=== PATIENT | female | born 1970 | race Hispanic/Latino ===

== ENCOUNTER 2024-01-15 10:02 | Emergency (ER) | payer BC ==
--- OUTSIDE RECORDS SUMMARY | 2024-01-15 10:07 | XMS REPORT | Continuity of Care Document ---
Author Name Unknown Address [address] [facility] [address] [place] [address] [facility] Address [address] [facility]. 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 Role Phone Mustapha Davis M.D.mberly Primary Care Physician Bree Rhodes Attending Clinician Unavailable KUSH WONG Attending Clinician Unavailabl e Fam HERNÁNDEZP, Kush Attending Clinician [phone] Unknown, Attending Attending Clinician Unavailab GC_GCBZW_Kadiyala_S Attending Clinician Unavaila ble Doctor Unassigned, [place] Attending Clinician U enedinaailCAROLIN Wong Attending Clinician Unavailable Carolin Ordonez Attending Clinician [phone] Serena Conner Attending Clinician + [phone] Elham Bahena Attending Clinician + [phone] SERENA WATERS Attending Clinician Unavail able Radiology Attending Clinician Unavailable RADIOLOGY Attending Clinician Unavailable Silvano Sterling Attending Clinician Unavailabl e [email or web address]_S Admitting Clinician Graham colunga Physician, No Primary or Family Admitting Clinic shereen Unavailable Payers Payer Name Policy Type Policy Number Effective Date Expirati on Date Source [facility] - OUT OF STATE [id number] 2016 00:00:00 [employer] and [employer] C1 [id number] 2017 00:00:00 [facility] Problems Condition Name Condition Details Condition Category Status Onset Date Resolution Date Last Treatment Date Treating Clinician Comments Source [id number] Pure hyperchole sterolemia Problem Active [facility] [id number] Essential hypertensi on Problem Active [facility] [id number] Fatty liver Problem Active [facility] Allergic rhinitis Allergic rhinitis Problem Active [facility] FH: Diabetes mellitus Family history of diabetes mellitus Problem Active [facility] Overweight Overweight (BMI 25.0-29.9) Problem Active [facility] No known active problems No known active problems Disease [facility] [id number] Right groin pain Problem Active [facility] Liver function tests abnormal Abnormal LFTs Problem Active [facility] [id number] Vitamin D deficiency Problem Active [facility] [id number] Prediabete s Problem Active [facility] [id number] Leg cramps Problem Active Co mmon [facility] [id number] Alkaline phosphatas e raised Problem Active [facility] [id number] Mass of inguinal region Problem Active [facility] [id number] Hematuria, unspecifie d type Problem Active [facility] Allergies, Adverse Reactions, Alerts Allergy Name Allergy Type Status Severity Reaction(s) Onset Date Inactive Date Treating Clinician Comments Source NO KNOWN ALLERGIE S Drug Class Active [facility] Social History Social Habit Start Date Stop Date Quantity Comments Source Sexual orientation U [facility] Sex Assigned At [facility] Exposure to SARS-CoV-2 (event) Not sure [facility] History of Tobacco Use [facility] History of Social function 2023-08-10 00:00:00 2023-08-10 00:00:00 [facility] Tobacco use and exposure 2023-08-10 00:00:00 2023-08-10 00:00:00 Smokeless tobacco non-user [facility] Alcohol intake 2023-08-10 00:00:00 2023-08-10 00:00:00 Current non-drinker of alcohol (finding) [facility] Smoking Status Start Date Stop Date Source Never smoked tobacco [facility] Never Smoker [facility] Medications Ordered Medication Name Filled Medication Name Start Date Stop Date Current Medication? Ordering Clinician Indication Dosage Frequency Signature (SIG) Comments Components Source lisinopril 20 mg tablet 10-09 00:00: 00 Yes 1mg Rolan Elizabeth rosuvastati n 10 mg tablet 10-09 00:00: 00 Yes 1mg Rolan Elizabeth promethazin e-dextromet horphan 6.25-15 mg/5 mL syrup 08-10 00:00: 00 Yes [id number] 5mL Take 5 mL by mouth 4 (four) times daily as needed for Cough. [facility] methylPREDN ISolone (MEDROL, JAVIER,) 4 mg tablets 08-10 00:00: 00 Yes [id number] Take by mouth SEE-INSTRU CTIONS. follow package directions [facility] lisinopril 20 mg tablet 2022-08 205 00:00: 00 Yes mg Rolan Elizabeth rosuvastati n 10 mg tablet 2022-08 0-31 00:00: 00 Yes mg Rolan Elizabeth ROSUVASTATI N CALCIUM 10 MG TABS 01-06 00:00: 00 Yes Rolan Elizabeth LISINOPRIL 20 MG TABS 01-06 00:00: 00 Yes Rolan Elizabeth NITROFURANT OIN MONOHYDRATE 100 MG CAPS 2021-08- 00:00: 00 Yes Rolan Elizabeth TAKE 1 TABLET DAILY. 2021-08 00:00: 00 12-17 00:00 :00 No 20 Rolan Elizabeth TAKE 1 TABLET AT BEDTIME. 2021-08 00:00: 00 12-17 00:00 :00 No 10 Rolan Elizabeth ciprofloxac in 500 mg tablet 12-23 00:00: 00 Yes 1mg Rolan Elizabeth lisinopril 20 mg tablet 11-18 00:00: 00 Yes 1mg Rolan Elizabeth Dose Unknown 11-18 00:00: 00 Yes Rolan Elizabeth Dose Unknown 11-18 00:00: 00 Yes Rolan Elizabeth Dose Unknown 11-18 00:00: 00 Yes Rolan Elizabeth Dose Unknown 11-18 00:00: 00 Yes Rolan Elizabeth Dose Unknown 11-18 00:00: 00 Yes Rolan Elizabeth rosuvastati n 10 mg tablet 09-28 00:00: 00 Yes 1mg Rolan Elizabeth lisinopril 20 mg tablet 09-28 00:00: 00 Yes 1mg Rolan Elizabeth prednisone 20 mg tablet 09-01 00:00: 00 Yes 1mg Rolan Elizabeth azithromyci n 250 mg tablet 09-01 00:00: 00 Yes mg Rolan Elizabeth Bromfed DM 2 mg-30 mg-10 mg/5 mL oral syrup 09-01 00:00: 00 Yes 10mg/5 mL Rolan Elizabeth Protonix 40 mg tablet,светлана yed release 2020-08 00:00: 00 Yes 1mg Rolan Elizabeth Zofran 4 mg tablet 2020-08 00:00: 00 Yes 1mg Rolan Elizabeth Nitrofurant oin&Nit. Macrocryst 100 mg capsule 2020-08 00:00: 00 08-06 05:59 :00 No [id number] 100mg Take 1 capsule by mouth 2 (two) times daily for 7 days. [facility] LISINOPRIL ORAL 01-16 00:35: 37 Yes 20mg Take 20 mg by mouth daily. [facility] atorvastati n 10 mg tablet 01-16 00:35: 37 Yes 10mg Take 10 mg by mouth at bedtime. [facility] LISINOPRIL ORAL 01-15 19:35: 37 Yes 20mg Take 20 mg by mouth daily. [facility] atorvastati n 10 mg tablet 01-15 19:35: 37 Yes 10mg Take 10 mg by mouth at bedtime. [facility] rosuvastati n 10 mg tablet 12-17 00:00: 00 Yes 10mg Take 10 mg by mouth at bedtime. [facility] Ergocalcife rol [id number] UNIT Ergocalcife rol 60031 UNIT 2019-08 00:00: 00 09-17 00:00 :00 No 1{capsu le} Ergocalcif kain 10142 UNIT PredniSONE PredniSONE 03-17 00:00: 00 03-27 00:00 :00 No Na Rhodes 2 tablets dailyx 5 days then 1 tablet daily x 5 days [facility] Azithromyci n Azithromyci n 03-17 00:00: 00 03-22 00:00 :00 No Na Rhodes 2 tablets on the first day, then 1 tablet daily for 4 days [facility] LISINOPRIL ORAL 11-07 23:33: 50 Yes 20mg Take 20 mg by mouth daily. [facility] atorvastati n 10 mg tablet 11-07 23:33: 50 Yes 10mg Take 10 mg by mouth at bedtime. [facility] promethazin e-dextromet horphan 6.25-15 mg/5 mL syrup 11-07 00:00: 00 Yes [id number] 5mL Take 5 mL by mouth 4 (four) times daily as needed for Cough or Cold symptoms. [facility] guaiFENesin 600 mg tablet 11-07 00:00: 00 Yes [id number] 600mg Take 1 tablet by mouth every 12 (twelve) hours. [facility] Cipro Cipro 04-19 00:00: 00 Yes Na Rhodes 1 tablet [facility] Cipro 500 MG Cipro 500 MG 913 00:00: 00 No 1{table t} BID Cipro 500 MG Crestor Crestor 16 00:00: 00 Yes Na Rhodes 1 tablet [facility] naproxen sodium 550 mg tablet 12-26 00:00: 00 Yes 550mg Take 1 tablet by mouth 2 (two) times daily with meals. [facility] Levocetiriz ine Dihydrochlo ride Levocetiriz ine Dihydrochlo ride Yes Na Rhodes 1 tablet in the evening [facility] Flonase Flonase Yes Na Rhodes 1 spray in each nostril [facility] Lipitor Lipitor Yes Na Rhodes 1 TAB(S) ONCE A DAY (AT BEDTIME) ORALLY [facility] Lisinopril Lisinopril Yes Na Rhodes TA KE ONE DAILY [facility] Singulair Singulair Yes Na Rhodes 1 ta blet in the evening [facility] Lisinopril Lisinopril Yes Na Rhodes 1 tablet [facility] Singulair 10 MG Singulair 10 MG No 1{table t_in_ e_eveni ng} QD Singulair 10 MG Flonase 50 MCG/ACT Flonase 50 MCG/ACT No 1{spray _in_eac h_nostr il} QD Flonase 50 MCG/ACT Crestor 5 MG Crestor 5 MG No 1{table t} QD Crestor 5 MG Lisinopril 20 MG Lisinopril 20 MG No 1{table t} QD Lisinopril 20 MG Levocetiriz ine Dihydrochlo ride 5 MG Levocetiriz ine Dihydrochlo ride 5 MG No 1{table t_in_ e_eveni ng} QD Levocetiri zine Dihydrochl oride 5 MG Lipitor 10 MG Lipitor 10 MG No Lipitor 10 MG Crestor 10 MG Crestor 10 MG No 1{table t} Crestor 10 MG Rosuvastati n Calcium 5 MG Rosuvastati n Calcium 5 MG No Rosuvastat in Calcium 5 MG Immunizations Ordered Immunization Name Filled Immunization Name Date Status Comments Source influenza, seasonal vaccine, quadrivalent, adjuvanted, .5mL dose, preservative-free influenza, seasonal vaccine, quadrivalent, adjuvanted, .5mL dose, preservative-free 2022-06-17 00:00:00 Completed Rolan Elizabeth Afluria single dose Afluria single dose 09:35:00 Completed [facility] Afluria single dose Afluria single dose 09:35:00 Completed [facility] Afluria single dose Afluria single dose 09:35:00 Completed [facility] Afluria single dose Afluria single dose 09:35:00 Completed [facility] Afluria single dose Afluria single dose 09:35:[address] [facility] [place] [place] Vital Signs Vital Name Observation Time Observation Value Comments Willy babcock Systolic blood pressure 2023-08-10 16:09:00 128 mm[Hg] [facility] Diastolic blood pressure 2023-08-10 16:09:00 81 mm[Hg] [facility] Heart rate 2023-08-10 16:08:00 70 /min [facility] Body temperature 2023-08-10 16:08:00 37.06 Lexy [facility] Respiratory rate 2023-08-10 16:08:00 17 /min [facility] Body height 2023-08-10 16:08:00 154.9 cm [facility] Body weight 2023-08-10 16:08:00 71.668 kg [facility] BMI 2023-08-10 16:08:00 29.85 kg/m2 [facility] Oxygen saturation in Arterial blood by Pulse oximetry 2023-08-10 16:08:00 98 /min [facility] Systolic blood pressure 2021-07-29 23:40:00 114 mm[Hg] [facility] Diastolic blood pressure 2021-07-29 23:40:00 67 mm[Hg] [facility] Heart rate 2021-07-29 23:40:00 85 /min [facility] Body temperature 2021-07-29 23:40:00 36.94 Lexy [facility] Respiratory rate 2021-07-29 23:40:00 17 /min [facility] Body weight 2021-07-29 23:40:00 69.599 kg Univ [facility] BMI 2021-07-29 23:40:00 28.99 kg/m2 [facility] Oxygen saturation in Arterial blood by Pulse oximetry 2021-07-29 23:40:00 97 /min [facility] Systolic blood pressure 2021-01-16 00:35:00 130 mm[Hg] [facility] Diastolic blood pressure 2021-01-16 00:35:00 87 mm[Hg] [facility] Heart rate 2021-01-16 00:35:00 97 /min Unive [facility] Body temperature 2021-01-16 00:35:00 37.39 Lexy [facility] Respiratory rate 2021-01-16 00:35:00 16 /min [facility] Body height 2021-01-16 00:35:00 154.9 cm [facility] Body weight 2021-01-16 00:35:00 70.761 kg [facility] BMI 2021-01-16 00:35:00 29.48 kg/m2 [facility] Oxygen saturation in Arterial blood by Pulse oximetry 2021-01-16 00:35:00 100 /min [facility] bmi 2020-12-17 08:00:00 29.47 kg/m2 [facility] oximetry 2020-12-17 08:00:00 97 % Commo n [facility] respiratory rate 2020-12-17 08:00:00 16 /min [facility] blood pressure systolic 2020-12-17 08:00:00 132 mm[Hg] Common [facility] blood pressure diastolic 2020-12-17 08:00:00 65 mm[Hg] [facility] height 2020-12-17 08:00:00 61.00 [in_i] Com [facility] weight 2020-12-17 08:00:00 156.0 [lb_av] Co [facility] temperature 2020-12-17 08:00:00 97.3 [degF] Com [facility] height 2020-06-19 08:00:00 61.00 [in_i] Com [facility] weight 2020-06-19 08:00:00 158.0 [lb_av] Co [facility] temperature 2020-06-19 08:00:00 97.7 [degF] Com [facility] bmi 2020-06-19 08:00:00 29.85 kg/m2 Comm on [facility] oximetry 2020-06-19 08:00:00 97 % Commo n [facility] respiratory rate 2020-06-19 08:00:00 16 /min [facility] blood pressure systolic 2020-06-19 08:00:00 129 mm[Hg] [facility] blood pressure diastolic 2020-06-19 08:00:00 74 mm[Hg] [facility] BP Systolic 2023-12-05 14:24:00 127 mm[Hg] Step hen F Glenn BP Diastolic 2023-12-05 14:24:00 66 mm[Hg] Blade Elizabeth Weight Measured 2023-12-05 14:24:00 159.20 pounds Rolan Elizabeth Height Measured 2023-12-05 14:24:00 60.85 inches Rolan F Glenn Body Temperature 2023-12-05 14:24:00 97.80 degrees Rolan F Glenn Heart Rate 2023-12-05 14:24:00 85.00 /min Emmy en F Glenn Respiratory Rate 2023-12-05 14:24:00 18.00 /min Rolan F Glenn BP Systolic 2023-10-10 13:37:00 136 mm[Hg] Step hen F Glenn BP Diastolic 2023-10-10 13:37:00 87 mm[Hg] Blade phen F Glenn Weight Measured 2023-10-10 13:37:00 157.80 pounds Rolan F Glenn Height Measured 2023-10-10 13:37:00 60.85 inches Rolan F Glenn Body Temperature 2023-10-10 13:37:00 98.20 degrees Rolan F Glenn Heart Rate 2023-10-10 13:37:00 63.00 /min Emmy en F Glenn Respiratory Rate 2023-10-10 13:37:00 Rolan F Glenn Weight Measured 2023-05-16 16:53:00 156.60 pounds Rolan F Glenn Height Measured 2023-05-16 16:53:00 60.85 inches Rolan F Glenn Body Temperature 2023-05-16 16:53:00 98.30 degrees Rolan F Glenn Heart Rate 2023-05-16 16:53:00 80.00 /min Emmy en F Glenn Respiratory Rate 2023-05-16 16:53:00 Rolan F Glenn BP Systolic 2023-05-16 16:53:00 113 mm[Hg] Step hen F Glenn BP Diastolic 2023-05-16 16:53:00 76 mm[Hg] Blade phen F Glenn BP Systolic 2023-01-06 15:54:00 116 mm[Hg] Step hen F Glenn BP Diastolic 2023-01-06 15:54:00 76 mm[Hg] Blade phen F Glenn Weight Measured 2023-01-06 15:54:00 162.40 pounds Rolan F Glenn Height Measured 2023-01-06 15:54:00 60.85 inches Rolan F Glenn Body Temperature 2023-01-06 15:54:00 98.40 degrees Rolan F Glenn Heart Rate 2023-01-06 15:54:00 84.00 /min Emmy en F Glenn Respiratory Rate 2023-01-06 15:54:00 Rolan F Glenn BP Systolic 2022-06-17 13:49:00 124 mm[Hg] Step hen F Glenn BP Diastolic 2022-06-17 13:49:00 79 mm[Hg] Blade phen F Glenn Weight Measured 2022-06-17 13:49:00 160.80 pounds Rolan F Glenn Height Measured 2022-06-17 13:49:00 60.85 inches Rolan F Glenn Body Temperature 2022-06-17 13:49:00 98.30 degrees Rolan F Glenn Heart Rate 2022-06-17 13:49:00 72.00 /min Emmy en F Glenn Respiratory Rate 2022-06-17 13:49:00 Rolan F Glenn BP Systolic 2021-12-23 15:28:00 129 mm[Hg] Step hen F Glenn BP Diastolic 2021-12-23 15:28:00 80 mm[Hg] Blade phen F Glenn Weight Measured 2021-12-23 15:28:00 161.00 pounds Rolan F Glenn Height Measured 2021-12-23 15:28:00 60.85 inches Rolan F Glenn Body Temperature 2021-12-23 15:28:00 97.70 degrees Rolan F Glenn Heart Rate 2021-12-23 15:28:00 92.00 /min Emmy en F Glenn Respiratory Rate 2021-12-23 15:28:00 Rolan F Glenn BP Systolic 2021-09-24 15:10:00 133 mm[Hg] Step hen F Glenn BP Diastolic 2021-09-24 15:10:00 77 mm[Hg] Blade phen F Glenn Weight Measured 2021-09-24 15:10:00 159.00 pounds Rolan F Glenn Height Measured 2021-09-24 15:10:00 60.85 inches Rolan F Glenn Body Temperature 2021-09-24 15:10:00 97.70 degrees Rolan F Glenn Heart Rate 2021-09-24 15:10:00 82.00 /min Emmy en F Glenn Respiratory Rate 2021-09-24 15:10:00 18.00 /min Rolan Yulia Elizabeth Procedures Procedure Date / Time Performed Performing Clinician Source POCT SARS-COV-2 ANTIGEN (BINAX NOW) 2023-08-10 16:15:00 Quynh Wiley [facility] POCT MOLECULAR FLU 2023-08-10 16:05:00 Unknown, Attend ing [facility] POCT MOLECULAR STREP 2023-08-10 16:04:00 Unknown, Atte brigitte [facility] REFERRAL- REQUEST/RESPONSE 2021-10-02 06:01:00 Doctor Unassigned, [place] [facility] POCT URINALYSIS 2021-07-29 23:48:[address] [facility] POCT GRP A STREP (MOLECULAR) 2021-01-16 00:46:[address] [facility] PELVIS COMPLETE WITH TRANSVAGINAL 2020-12-25 15:27:[address] [facility] PELVIS COMPLETE WITH TRANSVAGINAL 2020-11-13 20:24:44 Requisition, Paper [facility] Encounters Start Date/Time End Date/Time Encounter Type Admission Type Attending [facility] Facility Care Department Encounter ID Source 2021-09-01 14:30:41 Outpatient Bree Rhodes STLMLC STLMLC [id number] [facility] 2021-09-01 13:01:43 Outpatient Bree Rhodes STLMLC STLMLC [id number] [facility] 2021-09-01 12:04:38 Outpatient Bree Rhodes STLMLC STLMLC [id number] [facility] 2021-09-01 12:04:03 Outpatient Bree Rhodes STLMLC STLMLC [id number] [facility] 2021-09-01 11:36:31 Outpatient Bree Rhodes STLMLC STLMLC [id number] [facility] 2023-12-05 14:16:57 2023-12-05 14:16:57 Outpatient [facility] [id number] Rolan Bender Glenn 2023-12-05 00:00:00 2023-12-05 00:00:00 Outpatient Visit [facility] [id number] Rolan Bender Glenn 2023-12-01 10:00:54 2023-12-01 10:00:54 Outpatient SFA [facility] [id number] Rolan Bender Glenn 2023-10-10 13:33:23 2023-10-10 13:33:23 Outpatient [facility] [id number] Rolan Bender Glenn 2023-10-10 00:00:00 2023-10-10 00:00:00 Outpatient Visit [facility] [id number] Rolan Elizabeth 2023-08-10 09:20:00 2023-08-10 10:35:12 Outpatient R KUSH WONG [facility] [id number] [facility] 2023-08-10 09:20:00 2023-08-10 10:35:12 Urgent Care Kush Wong Unknown, Attending [facility] [id number] [facility] 2023-06-06 00:00:00 2023-06-06 00:00:00 Outpatient GC_GCBZW_Ka diyala_S PRIV PRIV [id number] [facility] 2023-06-05 00:00:00 2023-06-05 00:00:00 Outpatient GC_GCBZW_Ka diyala_S PRIV PRIV [id number] [facility] 2023-05-19 09:54:06 2023-05-19 09:54:06 Outpatient SFA [facility] [id number] Rolan Elizabeth 2023-05-16 16:46:15 2023-05-16 16:46:15 Outpatient SFA [facility] [id number] Rolan Elizabeth 2023-01-13 09:17:22 2023-01-13 09:17:22 Outpatient SFA SFA [id number] Rolan Elizabeth 2023-01-06 15:49:57 2023-01-06 15:49:57 Outpatient SFA SFA [id number] Rolan Elizabeth 2022-07-04 08:22:58 2022-07-04 08:22:58 Outpatient SFA SFA [id number] Rolan Elizabeth 2022-06-17 13:46:04 2022-06-17 13:46:04 Outpatient SFA SFA [id number] Rolan Elizabeth 2021-10-02 00:00:00 2021-10-02 00:00:00 Orders Only Doctor Unassigned, [place] [facility] 1..114 [id number] [facility] 2021-07-29 17:40:00 2021-07-29 19:12:30 Outpatient R PRIYANKA CAROLIN [facility] [id number] [facility] 2021-07-29 17:40:00 2021-07-29 19:12:30 Urgent Care Priyanka [facility] LUANN?[facility] 1.84.114 [id number] [facility] 2021-01-23 00:00:00 2021-01-23 00:00:00 Telephone Jules Serena [facility] 1..114 [id number] [id number] [id number] [facility] 2021-01-15 19:32:30 2021-01-15 19:53:51 Urgent Care Elham Smith Serena [facility] 1.84.114 [id number] [id number] [facility] 2021-01-15 19:40:00 2021-01-15 19:40:00 Outpatient R SERENA WATERS [facility] [id number] [facility] 2020-12-25 09:52:03 2020-12-25 23:59:00 Hospital Encounter Radiology [facility] 1.20.114 [id number] [id number] [id number] [facility] 2020-12-25 00:00:00 2020-12-25 00:00:00 Outpatient R RADIOLOGY [facility] [id number] [facility] 2020-12-17 00:00:00 2020-12-17 00:00:00 OFFICE VISIT ESTAB PT LEVEL 4 STLMLC STLMLC [id number] [facility] 2020-11-13 14:58:22 2020-11-13 23:59:00 Hospital Encounter Radiology [facility] [id number] [id number] [facility] 2020-11-13 00:00:00 2020-11-13 00:00:00 Outpatient R RADIOLOGY [facility] [id number] [facility] 2020-11-05 00:00:00 2020-11-05 00:00:00 Outpatient R RADIOLOGY [facility] [id number] [facility] 2020-11-02 16:39:00 2020-11-02 16:39:00 Outpatient Silvano Adair [facility] [id number] [facility] 2020-08-31 00:00:00 2020-08-31 00:00:00 (TEL) STLMLC STLMLC [id number] [facility] 2020-08-31 00:00:00 2020-08-31 00:00:00 (TEL) STLMLC STLMLC [id number] [facility] 2020-08-31 00:00:00 2020-08-31 00:00:00 OFFICE VISIT EST PT LEVEL 3 STLMLC STLMLC [id number] [facility] 2020-06-19 00:00:00 2020-06-19 00:00:00 OFFICE VISIT ESTAB PT LEVEL 4 STLMLC STLMLC [id number] [facility] 2020-03-19 07:46:00 2020-03-19 07:46:00 [facility]patient [facility] [address] [facility] [id number] [facility] 2020-03-17 10:00:00 2020-03-17 10:00:[address] [facility] [id number] [facility] 2020-03-16 15:42:00 2020-03-16 15:42:[address] [facility] [facility] [id number] [facility] 2019-12-31 22:43:00 2019-12-31 22:43:[address] [facility] [id number] [facility] 2019-12-31 22:25:00 2019-12-31 22:25:[address] [facility] [facility] [id number] [facility] 2019-12-31 21:49:00 2019-12-31 21:49:[address] [facility] [facility] [id number] [facility] 2019-12-27 12:00:00 2019-12-27 12:00:00 Outpatient Silvano Adair [facility] BRIE [id number] [facility] 2019-12-16 14:20:00 2019-12-16 14:20:00 [facility] [id number] [facility] 2019-12-16 08:08:00 2019-12-16 08:08:[address] [facility] [id number] [facility] 2019-06-17 14:40:00 2019-06-17 14:40:[address] [facility] [id number] [facility] 2018-05-15 14:40:00 2018-05-15 14:40:00 [facility] [id number] [facility] 2018-05-14 15:22:00 2018-05-14 15:22:00 Outpatient [facility] [id number] [facility] 2018-04-19 10:00:00 2018-04-19 10:00:00 Outpatient [facility] [id number] [facility] Results Test Description Test Time Test Comments Results Result Co mments Source Rolan ElizabethCOMPREHENSIVE METABOLIC [id number] 00:00:00* Test Item Value Reference Range Interpretation Comme nts GLUCOSE (test code = 2217) 93 MG/DL BUN (test code = 2208) 18 MG/DL CREATININE (test code = 2214) 0.87 MG/DL eGFR (2020 CKD-EPI) (test co de = 07082) 79 ML/MIN/1.73 CALC BUN/CREAT (test code = 2235) 21 RATIO SODIUM (test code = 2231) 136 MEQ/L POTASSIUM (test code = 2228) 4.0 MEQ/L CHLORIDE (test code = 2215) 102 MEQ/L CARBON DIOXIDE (test code = 2206) 21 MEQ/L CALCIUM (test code = 2209) 9.6 MG/DL PROTEIN, TOTAL (test code = 2229) 7.2 G/DL ALBUMIN (test code = 2201) 4.2 G/DL CALC GLOBULIN (test code = 2240) 3.0 G/DL CALC A/G RATIO (test code = 2234) 1.4 RATIO BILIRUBIN, TOTAL (test code = 2207) 0.6 MG/DL ALKALINE PHOSPHATASE (test code = 2204) 131 U/L AST (test code = 2218) 58 U/L ALT (test code = 2219) 75 U/L Rolan lEizabethHEMOGLOBIN [id number] 00:00:00* Test Item Value Reference Range Interpretation Comme nts HEMOGLOBIN A1c (test code = 70526) 5.9 % Rolan ElizabethLIPID [id number] 00:00:00* Test Item Value Reference Range Interpretation Comme nts CHOLESTEROL (test code = 2210) 181 MG/DL TRIGLYCERIDES (test code = 2232) 183 MG/DL HDL CHOLESTEROL (test code = 2220) 39 MG/DL CALC LDL CHOL (test code = 2237) 112 MG/DL RISK RATIO LDL/HDL (test cod e = 2238) 2.87 RATIO Rolan ElizabethCOMPREHENSIVE METABOLIC [id number] 00:00:00* Test Item Value Reference Range Interpretation Comme nts GLUCOSE (test code = 2217) 93 MG/DL BUN (test code = 2208) 18 MG/DL CREATININE (test code = 2214) 0.87 MG/DL eGFR (2020 CKD-EPI) (test co de = 31740) 79 ML/MIN/1.73 CALC BUN/CREAT (test code = 2235) 21 RATIO SODIUM (test code = 2231) 136 MEQ/L POTASSIUM (test code = 2228) 4.0 MEQ/L CHLORIDE (test code = 2215) 102 MEQ/L CARBON DIOXIDE (test code = 2206) 21 MEQ/L CALCIUM (test code = 2209) 9.6 MG/DL PROTEIN, TOTAL (test code = 2229) 7.2 G/DL ALBUMIN (test code = 2201) 4.2 G/DL CALC GLOBULIN (test code = 2240) 3.0 G/DL CALC A/G RATIO (test code = 2234) 1.4 RATIO BILIRUBIN, TOTAL (test code = 2207) 0.6 MG/DL ALKALINE PHOSPHATASE (test code = 2204) 131 U/L AST (test code = 2218) 58 U/L ALT (test code = 2219) 75 U/L Rolan ElizabethHEMOGLOBIN [id number] 00:00:00* Test Item Value Reference Range Interpretation Comme faustino HEMOGLOBIN A1c (test code = 13259) 5.9 % Rolan [facility] Molecular [id number] 16:17:32* Test Item Value Reference Range Interpretation Comme nts POCT Molecular FluA (test co de = 51146-0) Negative Negative POCT Molecular FluB (test co de = 09662-4) Negative Negative Lab Interpretation (test cod e = 92258-0) Normal [facility] SARS-COV-2 ANTIGEN (BINAX NOW)2023-08-10 16:15:00* Test Item Value Reference Range Interpretation Comme nts POCT SARS-COV-2 ANTIGEN (test code = 57631-8) Not Detected Not Detected On board controls acceptable with C Line (test code = 3574) Yes MORTEZA (test code = MORTEZA) accurate developme nt and interpretation of all internal controls Lab Interpretation (test code = 93451-6) [facility] [id number] 16:11:22* Test Item Value Reference Range Interpretation Comme nts POCT Molecular Strep (test c ode = 95080-2) Negative Negative Lab Interpretation (test cod e = 63077-7) [facility] [id number] 00:00:00* Test Item Value Reference Range Interpretation Comme nts GLUCOSE (test code = 2217) 101 MG/DL BUN (test code = 2208) 16 MG/DL CREATININE (test code = 2214) 0.88 MG/DL eGFR (2020 CKD-EPI) (test co de = 09851) 78 ML/MIN/1.73 CALC BUN/CREAT (test code = 2235) 18 RATIO SODIUM (test code = 2231) 138 MEQ/L POTASSIUM (test code = 2228) 4.5 MEQ/L CHLORIDE (test code = 2215) 103 MEQ/L CARBON DIOXIDE (test code = 2206) 27 MEQ/L CALCIUM (test code = 2209) 9.4 MG/DL PROTEIN, TOTAL (test code = 2229) 6.8 G/DL ALBUMIN (test code = 2201) 4.1 G/DL CALC GLOBULIN (test code = 2240) 2.7 G/DL CALC A/G RATIO (test code = 2234) 1.5 RATIO BILIRUBIN, TOTAL (test code = 2207) 0.5 MG/DL ALKALINE PHOSPHATASE (test code = 2204) 115 U/L AST (test code = 2218) 42 U/L ALT (test code = 2219) 58 U/L Rolan ElizabethLIPID [id number] 00:00:00* Test Item Value Reference Range Interpretation Comme nts CHOLESTEROL (test code = 2210) 152 MG/DL TRIGLYCERIDES (test code = 2232) 100 MG/DL HDL CHOLESTEROL (test code = 2220) 46 MG/DL CALC LDL CHOL (test code = 2237) 86 MG/DL RISK RATIO LDL/HDL (test cod e = 2238) 1.87 RATIO Rolan ElizabethHEMOGLOBIN [id number] 00:00:00* Test Item Value Reference Range Interpretation Comme nts HEMOGLOBIN A1c (test code = 64860) 5.9 % Rolan Bender AustinCOMPREHENSIVE METABOLIC [id number] 00:00:00* Test Item Value Reference Range Interpretation Comme nts GLUCOSE (test code = 2217) 101 MG/DL BUN (test code = 2208) 16 MG/DL CREATININE (test code = 2214) 0.88 MG/DL eGFR (2020 CKD-EPI) (test co de = 42641) 78 ML/MIN/1.73 CALC BUN/CREAT (test code = 2235) 18 RATIO SODIUM (test code = 2231) 138 MEQ/L POTASSIUM (test code = 2228) 4.5 MEQ/L CHLORIDE (test code = 2215) 103 MEQ/L CARBON DIOXIDE (test code = 2206) 27 MEQ/L CALCIUM (test code = 2209) 9.4 MG/DL PROTEIN, TOTAL (test code = 2229) 6.8 G/DL ALBUMIN (test code = 2201) 4.1 G/DL CALC GLOBULIN (test code = 2240) 2.7 G/DL CALC A/G RATIO (test code = 2234) 1.5 RATIO BILIRUBIN, TOTAL (test code = 2207) 0.5 MG/DL ALKALINE PHOSPHATASE (test code = 2204) 115 U/L AST (test code = 2218) 42 U/L ALT (test code = 2219) 58 U/L Rolan ElizabethLIPID [id number] 00:00:00* Test Item Value Reference Range Interpretation Comme nts CHOLESTEROL (test code = 2210) 152 MG/DL TRIGLYCERIDES (test code = 2232) 100 MG/DL HDL CHOLESTEROL (test code = 2220) 46 MG/DL CALC LDL CHOL (test code = 2237) 86 MG/DL RISK RATIO LDL/HDL (test cod e = 2238) 1.87 RATIO Rolan ElizabethHEMOGLOBIN [id number] 00:00:00* Test Item Value Reference Range Interpretation Comme nts HEMOGLOBIN A1c (test code = 47277) 5.9 % Rolan ElizabethCOMPREHENSIVE METABOLIC [id number] 00:21:21* Test Item Value Reference Range Interpretation Comme nts GLUCOSE (test code = 2217) 100 MG/DL 70-99 H Test not perform ed due to duplicate entry.Charges adjusted as applicable. BUN (test code = 2208) 15 MG/DL 6-20 CREATININE (test code = 2213) 0.85 MG/DL 0.60-1.30 eGFR (2020 CKD-EPI) (test code = ) 81 ML/MIN/1.73 >60 CALC BUN/CREAT (test code = 2234) 18 RATIO 6-28 SODIUM (test code = 2230) 137 MEQ/L 133-146 POTASSIUM (test code = 2227) 4.4 MEQ/L 3.5-5.4 CHLORIDE (test code = 2214) 103 MEQ/L 95-107 CARBON DIOXIDE (test code = 2205) 22 MEQ/L 19-31 CALCIUM (test code = 2208) 9.6 MG/DL 8.5-10.5 PROTEIN, TOTAL (test code = 2228) 6.8 G/DL 6.1-8.3 ALBUMIN (test code = 2200) 4.1 G/DL 3.5-5.2 CALC GLOBULIN (test code = 2239) 2.7 G/DL 1.9-3.7 CALC A/G RATIO (test code = 2233) 1.5 RATIO 1.0-2.6 BILIRUBIN, TOTAL (test code = 2206) 0.4 MG/DL See_Comment [Automated me ssage] The system which generated this result transmitted reference range: <=1.2. The reference range was not used to interpret this result as normal/abnormal. ALKALINE PHOSPHATASE (test code = 2203) 125 U/L 40-133 AST (test code = 2217) 59 U/L 9-40 H ALT (test code = 2218) 70 U/L 5-40 H LIPID [id number] 00:21:21* Test Item Value Reference Range Interpretation Comme nts CHOLESTEROL (test code = 2209) 142 MG/DL <200 TRIGLYCERIDES (test code = 2232) 84 MG/DL <150 HDL CHOLESTEROL (test code = 2219) 44 MG/DL >39 CALC LDL CHOL (test code = 2236) 82 MG/DL <100 NOTE: CALCULATED LDL IS BASED ON CUCO-URIOSTEGUI METHOD WHICHINCLUDES ADJUSTABLE TRIGLYCERIDE:VLDL CHOLESTEROL RATIO.THIS FACTOR VARIES BY MEASURED TRIGLYCERIDE AND NON-HDLCHOLESTEROL CONCENTRATIONS WITH INCREASED CALCULATED LDL SEENIN HIGHER TRIGLYCERIDE OR LOWER NON-HDL SPECIMENS. FOR MOREINFORMATION, SEE CLIENT ANNOUNCEMENT AT [email or web address] RISK RATIO LDL/HDL (test code = 2238) 1.86 RATIO <3.22 UNLESS OTHERW ISE INDICATED, ALL TESTING PERFORMED AT [facility] [address] [place] [address] [employer] OP: SNEHAL LEZAMA M.D. CLIA NUMBER [id number] [place]. [id number] COMPREHENSIVE METABOLIC [id number] 00:00:00* Test Item Value Reference Range Interpretation Comme nts GLUCOSE (test code = 2217) 100 MG/DL BUN (test code = 2208) 15 MG/DL CREATININE (test code = 2214) 0.85 MG/DL eGFR (2020 CKD-EPI) (test co de = 81839) 81 ML/MIN/1.73 CALC BUN/CREAT (test code = 2235) 18 RATIO SODIUM (test code = 2231) 137 MEQ/L POTASSIUM (test code = 2228) 4.4 MEQ/L CHLORIDE (test code = 2215) 103 MEQ/L CARBON DIOXIDE (test code = 2206) 22 MEQ/L CALCIUM (test code = 2209) 9.6 MG/DL PROTEIN, TOTAL (test code = 2229) 6.8 G/DL ALBUMIN (test code = 2201) 4.1 G/DL CALC GLOBULIN (test code = 2240) 2.7 G/DL CALC A/G RATIO (test code = 2234) 1.5 RATIO BILIRUBIN, TOTAL (test code = 2207) 0.4 MG/DL ALKALINE PHOSPHATASE (test code = 2204) 125 U/L AST (test code = 2218) 59 U/L ALT (test code = 2219) 70 U/L Rolan F AustinLIPID [id number] 00:00:00* Test Item Value Reference Range Interpretation Comme nts CHOLESTEROL (test code = 2210) 142 MG/DL TRIGLYCERIDES (test code = 2232) 84 MG/DL HDL CHOLESTEROL (test code = 2220) 44 MG/DL CALC LDL CHOL (test code = 2237) 82 MG/DL RISK RATIO LDL/HDL (test cod e = 2238) 1.86 RATIO Rolan ElizabethCOMPREHENSIVE METABOLIC [id number] 00:00:00* Test Item Value Reference Range Interpretation Comme nts GLUCOSE (test code = 2217) 100 MG/DL BUN (test code = 2208) 15 MG/DL CREATININE (test code = 2214) 0.85 MG/DL eGFR (2020 CKD-EPI) (test co de = 43259) 81 ML/MIN/1.73 CALC BUN/CREAT (test code = 2235) 18 RATIO SODIUM (test code = 2231) 137 MEQ/L POTASSIUM (test code = 2228) 4.4 MEQ/L CHLORIDE (test code = 2215) 103 MEQ/L CARBON DIOXIDE (test code = 2206) 22 MEQ/L CALCIUM (test code = 2209) 9.6 MG/DL PROTEIN, TOTAL (test code = 2229) 6.8 G/DL ALBUMIN (test code = 2201) 4.1 G/DL CALC GLOBULIN (test code = 2240) 2.7 G/DL CALC A/G RATIO (test code = 2234) 1.5 RATIO BILIRUBIN, TOTAL (test code = 2207) 0.4 MG/DL ALKALINE PHOSPHATASE (test code = 2204) 125 U/L AST (test code = 2218) 59 U/L ALT (test code = 2219) 70 U/L Rolan F AustinLIPID [id number] 00:00:00* Test Item Value Reference Range Interpretation Comme nts CHOLESTEROL (test code = 2210) 142 MG/DL TRIGLYCERIDES (test code = 2232) 84 MG/DL HDL CHOLESTEROL (test code = 2220) 44 MG/DL CALC LDL CHOL (test code = 2237) 82 MG/DL RISK RATIO LDL/HDL (test cod e = 2238) 1.86 RATIO Rolan Bender AustinHEMOGLOBIN [id number] 22:49:30* Test Item Value Reference Range Interpretation Comme nts HEMOGLOBIN A1c (test code = 23565) 6.1 % 4.2-5.6 H [employer] GUIDELINES FOR HGB A1C: PREDIABETES/INCREASED RISK . . . . . . . 5.7-6.4% DIAGNOSIS OF DIABETES . . . . . . . . . >=6.5% WITH CONFIRMATION OR APPROPRIATE SYMPTOMS NOTE: ASSAY MAY BE AFFECTED BY HEMOGLOBINOPATHIES (SICKLE CELL ANEMIA, S-C DISEASE, OTHERS) OR ARTIFICIALLY LOWERED BY DECREASED RED CELL SURVIVAL (HEMOLYTIC ANEMIAS, BLOOD LOSS, ETC.). CONSIDER ALTERNATE TESTING OR LABORATORY CONSULTATION. HEMOGLOBIN [id number] 00:00:00* Test Item Value Reference Range Interpretation Comme nts HEMOGLOBIN A1c (test code = 54669) 6.1 % Rolan ElizabethHEMOGLOBIN [id number] 00:00:00* Test Item Value Reference Range Interpretation Comme nts HEMOGLOBIN A1c (test code = 10773) 6.1 % Rolan ElizabethCOMPREHENSIVE METABOLIC PANEL [ADDED]2022-07-05 00:00:00* Test Item Value Reference Range Interpretation Comme nts GLUCOSE (test code = 2217) 112 MG/DL BUN (test code = 2208) 22 MG/DL CREATININE (test code = 2214) 0.94 MG/DL eGFR (2020 CKD-EPI) (test co de = 52331) 72 ML/MIN/1.73 CALC BUN/CREAT (test code = 2235) 23 RATIO SODIUM (test code = 2231) 139 MEQ/L POTASSIUM (test code = 2228) 4.4 MEQ/L CHLORIDE (test code = 2215) 104 MEQ/L CARBON DIOXIDE (test code = 2206) 25 MEQ/L CALCIUM (test code = 2209) 9.4 MG/DL PROTEIN, TOTAL (test code = 2229) 6.7 G/DL ALBUMIN (test code = 2201) 4.2 G/DL CALC GLOBULIN (test code = 2240) 2.5 G/DL CALC A/G RATIO (test code = 2234) 1.7 RATIO BILIRUBIN, TOTAL (test code = 2207) 0.3 MG/DL ALKALINE PHOSPHATASE (test code = 2204) 167 U/L AST (test code = 2218) 51 U/L ALT (test code = 2219) 88 U/L Rolan ElizabethHEMOGLOBIN A1c [ADDED]2022-07-05 00:00:00* Test Item Value Reference Range Interpretation Comme faustino HEMOGLOBIN A1c (test code = 43703) 6.0 % Rolan Bender AustinLIPID PANEL [ADDED]2022-07-05 00:00:00* Test Item Value Reference Range Interpretation Comme nts CHOLESTEROL (test code = 2210) 148 MG/DL TRIGLYCERIDES (test code = 2232) 141 MG/DL HDL CHOLESTEROL (test code = 2220) 44 MG/DL CALC LDL CHOL (test code = 2237) 80 MG/DL RISK RATIO LDL/HDL (test cod e = 2238) 1.82 RATIO Rolan ElizabethCOMPREHENSIVE METABOLIC PANEL [ADDED]2022-07-05 00:00:00* Test Item Value Reference Range Interpretation Comme nts GLUCOSE (test code = 2217) 112 MG/DL BUN (test code = 2208) 22 MG/DL CREATININE (test code = 2214) 0.94 MG/DL eGFR (2020 CKD-EPI) (test co de = 21830) 72 ML/MIN/1.73 CALC BUN/CREAT (test code = 2235) 23 RATIO SODIUM (test code = 2231) 139 MEQ/L POTASSIUM (test code = 2228) 4.4 MEQ/L CHLORIDE (test code = 2215) 104 MEQ/L CARBON DIOXIDE (test code = 2206) 25 MEQ/L CALCIUM (test code = 2209) 9.4 MG/DL PROTEIN, TOTAL (test code = 2229) 6.7 G/DL ALBUMIN (test code = 2201) 4.2 G/DL CALC GLOBULIN (test code = 2240) 2.5 G/DL CALC A/G RATIO (test code = 2234) 1.7 RATIO BILIRUBIN, TOTAL (test code = 2207) 0.3 MG/DL ALKALINE PHOSPHATASE (test code = 2204) 167 U/L AST (test code = 2218) 51 U/L ALT (test code = 2219) 88 U/L Rolan ElizabethHEMOGLOBIN A1c [ADDED]2022-07-05 00:00:00* Test Item Value Reference Range Interpretation Comme nts HEMOGLOBIN A1c (test code = 85080) 6.0 % Rolan Bender AustinLIPID PANEL [ADDED]2022-07-05 00:00:00* Test Item Value Reference Range Interpretation Comme nts CHOLESTEROL (test code = 2210) 148 MG/DL TRIGLYCERIDES (test code = 2232) 141 MG/DL HDL CHOLESTEROL (test code = 2220) 44 MG/DL CALC LDL CHOL (test code = 2237) 80 MG/DL RISK RATIO LDL/HDL (test cod e = 2238) 1.82 RATIO Rolan ElizabethLIPID [id number] 05:17:16* Test Item Value Reference Range Interpretation Comme nts CHOLESTEROL (test code = 2210) 175 MG/DL <200 TRIGLYCERIDES (test code = 2232) 93 MG/DL <150 HDL CHOLESTEROL (test code = 2220) 45 MG/DL >39 CALC LDL CHOL (test code = 2236) 111 MG/DL <100 H NOTE: CALCULATED LDL IS BASED ON CUCO-URIOSTEGUI METHOD WHICHINCLUDES ADJUSTABLE TRIGLYCERIDE:VLDL CHOLESTEROL RATIO.THIS FACTOR VARIES BY MEASURED TRIGLYCERIDE AND NON-HDLCHOLESTEROL CONCENTRATIONS WITH INCREASED CALCULATED LDL SEENIN HIGHER TRIGLYCERIDE OR LOWER NON-HDL SPECIMENS. FOR MOREINFORMATION, SEE CLIENT ANNOUNCEMENT AT [email or web address] RISK RATIO LDL/HDL (test code = 2237) 2.47 RATIO <3.22 COMPREHENSIVE METABOLIC [id number] 05:17:16* Test Item Value Reference Range Interpretation Comme nts GLUCOSE (test code = 2216) 98 MG/DL 70-99 BUN (test code = 2207) 16 MG/DL 6-20 CREATININE (test code = 221) 0.80 MG/DL 0.60-1.30 eGFR (2020 CKD-EPI) (test code = 54040) 88 ML/MIN/1.73 >60 CALC BUN/CREAT (test code = 2235) 20 RATIO 6-28 SODIUM (test code = 223) 140 MEQ/L 133-146 POTASSIUM (test code = 2228) 4.2 MEQ/L 3.5-5.4 CHLORIDE (test code = 2215) 106 MEQ/L 95-107 CARBON DIOXIDE (test code = 2206) 23 MEQ/L 19-31 CALCIUM (test code = 2209) 9.0 MG/DL 8.5-10.5 PROTEIN, TOTAL (test code = 2228) 6.7 G/DL 6.1-8.3 ALBUMIN (test code = 2200) 3.9 G/DL 3.5-5.2 CALC GLOBULIN (test code = 2240) 2.8 G/DL 1.9-3.7 CALC A/G RATIO (test code = 223) 1.4 RATIO 1.0-2.6 BILIRUBIN, TOTAL (test code = 2206) 0.3 MG/DL See_Comment [Automated me ssage] The system which generated this result transmitted reference range: <=1.2. The reference range was not used to interpret this result as normal/abnormal. ALKALINE PHOSPHATASE (test code = 2203) 138 U/L 40-133 H AST (test code = 2218) 37 U/L 9-40 ALT (test code = 2219) 56 U/L 5-40 H UNLESS OTHERWISE INDICATED, ALL TESTING PERFORMED [facility] [address] [place] [address] [employer] OP: NEGRITA CALLEJAS M.D. CLIA NUMBER [id number] [facility] [place]. [id number] HEMOGLOBIN [id number] 03:34:11* Test Item Value Reference Range Interpretation Comme nts HEMOGLOBIN A1c (test code = 47794) 6.0 % 4.2-5.6 H HEMOGLOBIN [id number] 00:00:00* Test Item Value Reference Range Interpretation Comme nts HEMOGLOBIN A1c (test code = 30534) 6.0 % Rolan ElizabethLIPID [id number] 00:00:00* Test Item Value Reference Range Interpretation Comme nts CHOLESTEROL (test code = 2210) 175 MG/DL TRIGLYCERIDES (test code = 2232) 93 MG/DL HDL CHOLESTEROL (test code = 2220) 45 MG/DL CALC LDL CHOL (test code = 2237) 111 MG/DL RISK RATIO LDL/HDL (test cod e = 2238) 2.47 RATIO Rolan ElizabethCOMPREHENSIVE METABOLIC [id number] 00:00:00* Test Item Value Reference Range Interpretation Comme nts GLUCOSE (test code = 2217) 98 MG/DL BUN (test code = 2208) 16 MG/DL CREATININE (test code = 2214) 0.80 MG/DL eGFR (2020 CKD-EPI) (test co de = 16451) 88 ML/MIN/1.73 CALC BUN/CREAT (test code = 2235) 20 RATIO SODIUM (test code = 2231) 140 MEQ/L POTASSIUM (test code = 2228) 4.2 MEQ/L CHLORIDE (test code = 2215) 106 MEQ/L CARBON DIOXIDE (test code = 2206) 23 MEQ/L CALCIUM (test code = 2209) 9.0 MG/DL PROTEIN, TOTAL (test code = 2229) 6.7 G/DL ALBUMIN (test code = 2201) 3.9 G/DL CALC GLOBULIN (test code = 2240) 2.8 G/DL CALC A/G RATIO (test code = 2234) 1.4 RATIO BILIRUBIN, TOTAL (test code = 2207) 0.3 MG/DL ALKALINE PHOSPHATASE (test code = 2204) 138 U/L AST (test code = 2218) 37 U/L ALT (test code = 2219) 56 U/L Rolan ElizabethHEMOGLOBIN [id number] 00:00:00* Test Item Value Reference Range Interpretation Comme faustino HEMOGLOBIN A1c (test code = 32242) 6.0 % Rolan ElizabethLIPID [id number] 00:00:00* Test Item Value Reference Range Interpretation Comme nts CHOLESTEROL (test code = 2210) 175 MG/DL TRIGLYCERIDES (test code = 2232) 93 MG/DL HDL CHOLESTEROL (test code = 2220) 45 MG/DL CALC LDL CHOL (test code = 2237) 111 MG/DL RISK RATIO LDL/HDL (test cod e = 2238) 2.47 RATIO Rolan ElizabethCOMPREHENSIVE METABOLIC [id number] 00:00:00* Test Item Value Reference Range Interpretation Comme nts GLUCOSE (test code = 2217) 98 MG/DL BUN (test code = 2208) 16 MG/DL CREATININE (test code = 2214) 0.80 MG/DL eGFR (2020 CKD-EPI) (test co de = 50932) 88 ML/MIN/1.73 CALC BUN/CREAT (test code = 2235) 20 RATIO SODIUM (test code = 2231) 140 MEQ/L POTASSIUM (test code = 2228) 4.2 MEQ/L CHLORIDE (test code = 2215) 106 MEQ/L CARBON DIOXIDE (test code = 2206) 23 MEQ/L CALCIUM (test code = 2209) 9.0 MG/DL PROTEIN, TOTAL (test code = 2229) 6.7 G/DL ALBUMIN (test code = 2201) 3.9 G/DL CALC GLOBULIN (test code = 2240) 2.8 G/DL CALC A/G RATIO (test code = 2234) 1.4 RATIO BILIRUBIN, TOTAL (test code = 2207) 0.3 MG/DL ALKALINE PHOSPHATASE (test code = 2204) 138 U/L AST (test code = 2218) 37 U/L ALT (test code = 2219) 56 U/L Rolan ElizabethPOCT URINALYSIS W SPECIFIC [id number] 23:48:00* Test Item Value Reference Range Interpretation Comme nts POCT U SP GRAV (test code = 3255) 1.015 mg/dl 1.005-1.025 POCT PH U (test code = 3254) 7 mg/dl 5-8 POCT U LEUK EST (test code = 3263) Positive + Negative - Negative POCT U NIT (test code = 3262) Positive Negative - Negative POCT U PROT (test code = 3259) Negative Negative - Negative POCT U GLU (test code = 3256) Negative Negative - Negative POCT U KETONE (test code = 3258) Negative Negative - Negative POCT U UROBILI (test code = 3260) Normal 0.2-1 POCT U BILI (test code = 3261) Negative Negative - Negative POCT U BLD (test code = 3257) About 250 Bert/uL Negative - Negative POCT U COLOR (test code = 3266) dwight POCT U APPEAR (test code = 3267) cloudy MORTEZA (test code = MORTEZA) accurate developme nt and interpretation of all internal controls Lab Interpretation (test code = 12783-3) Abnormal [facility] GRP A STREP (MOLECULAR)2021-01-16 00:46:00* Test Item Value Reference Range Interpretation Comme nts POCT GP A STREP (test code = 88145-0) negative Negative - Negative MORTEZA (test code = MORTEZA) accurate developme nt and interpretation of all internal controls Lab Interpretation (test code = 67433-3) Normal [facility] PELVIS COMPLETE WITH [id number] 18:56:49Unchanged appearance of a 0.4 cm echogenic focus in the right ovary. Thismay represent a small dermoid. Unchanged punctate calcifications. Normal left ovary. Preliminary Report Dictated by Resident: Calixto Finney MD., have reviewed this study and agree with theabove report.EXAM: US PELVIS COMPLETE WITH TRANSVAGINAL HISTORY: 50 years -old Female with cyst of right ovary. LMP =TECHNIQUE: Transabdominal and transvaginal ultrasound imaging of the pelviswas performed including color Doppler evaluation. Polysomnography Technician imageswere obtained for the record. COMPARISON: 11/13/2020 FINDINGS: Uterus: The uterus is surgically absent. Right Adnexa:Ovary size: 1.9 x 1.2 x 1.4 cm, 1.6 mLOvary appearance: A 0.4 cm well-defined echogenic focus within the ovaryappears unchanged compared to prior. A couple of punctate ovarycalcifications are noted. Left Adnexa:Ovary size: 1.4 x 1.4 x 1.0cm, 1.1 mLOvary appearance: Normal.Other: No mass. Cul-de-sac: No free fluid. [facility], Radiant ResultsInft User - 12/25/2020 1:57 PM CDTEXAM: US PELVIS COMPLETE WITH TRANSVAGINALHISTORY: 50 years -old Female with cyst of right ovary. LMP =TECHNIQUE: Transabdominal and transvaginal ultrasound imaging of the pelviswas performed including color Doppler evaluation. Polysomnography Technician imageswere obtained for the record.COMPARISON: 11/13/2020FINDINGS:Uterus: The uterus is surgically absent.Right Adnexa:Ovarysize: 1.9 x 1.2 x 1.4 cm, 1.6 mLOvary appearance: A 0.4 cm well-defined echogenic focus within the ovaryappears unchanged compared to prior. A couple of punctate ovarycalcifications are noted.Left Adnexa:Ovary size: 1.4 x 1.4 x 1.0 cm, 1.1 mLOvary appearance: Normal.Other: No mass.Cul-de-sac: No free fluid. IMPRESSIONUnchanged appearance of a 0.4 cm echogenic focus in the right ovary. Thismay represent a small dermoid. Unchanged punctate calcifications.Normal left ovary.Preliminary Report Dictated by Resident: Serenity Mcfarland, Calixto Ayers MD., have reviewed this study and agree with theabove report.[facility] PELVIS COMPLETE WITH [id number] 20:39:21A 0.4 cm echogenic lesion in the right ovary may represent dermoid.Recommend a short-term follow-upto reassure stability. Punctate rightovarian calcifications. Normal right ovary.TRANSABDOMINAL AND T RANSVAGINAL PELVIC ULTRASOUND HISTORY: Pain pelvic COMPARISON: None. TECHNIQUE: Transvaginal and limited transabdominal sonography of the pelviswas performed. FINDINGS: The uterus is absent. The right ovary measures 1.2 x 1.3 x 1.7 cm. cm. A well-defined 0.4 cmechogenic lesion within the ovary. Scattered punctate echogenic foci inovarian parenchymal may represent calcification. The left ovary measures 1.0 x 1.9 x 1.4 cm. No adnexal masses. Asubcentimeter ovarian follicle is noted. No fluid is present in the cul-de-sac. ? [facility], Radiant Results Inft User - 11/13/2020 3:40 PM CDTTRANSABDOMINAL AND TRANSVAGINAL PELVIC ULTRASOUNDHISTORY: Pain pelvic COMPARISON: None.TECHNIQUE: Transvaginal and li mited transabdominal sonography of the pelviswas performed.FINDINGS: The uterus is absent. The right ovary measures 1.2 x 1.3 x 1.7 cm. cm. A well-defined 0.4 cmechogenic lesion within the ovary. Scattered punctate echogenic foci inovarian parenchymal may represent calcification. The left ovary measures 1.0 x 1.9 x 1.4 cm. No adnexal masses. Asubcentimeter ovarian follicle is noted. No fluid is pr esent in the cul-de-sac. IMPRESSIONA 0.4 cm echogenic lesion in the right ovary may represent dermoid.Recommend a short-term follow-up to reassure stability. Punctate rightovarian calcifications.Normal right ovary.[facility]OV 2 Antigen Notes Date/Time Note Provider Source 2023-12-05 00:00:00 [id number] T00:00:00+ + +| Plan Activity | Plan Date |+ + +| Auto-Add by COVID19 Screen Import. Testing based on symptoms of fatigue,body | 2021-08-02 || aches and sore throat. Can take Nsiads for body aches. | || RTO entered for COVID testing | || Continue practicing social distancing, self quarantine, and monitor symptoms | || Results returning 7-10 days secondary to high volume of [place] Testing Priority | || results as designated by CDC returning up to 3 days | || Check Patient Portal for negative results 7-10 days or await SMS messaging | || Positive Results will be called to patient to begin isolation, receive ER | || precautions and follow up Telehealth appointments. Positive results will be | || notified to the [facility] to determine contact tracing | || Continue self quarantine as indicated until results return, social distancing, | || hand hygiene and enforced mask wearing Proceed to your nearest emergency room | || for shortness of breath and decompensation | || Please use COVID-19 telephone number for any questions, Return to | || clinic as recommended or negative testing with remaining symptoms | || RTO if needed | |+ + +| differential include, gastritis, gastric ulcer, h pylori, pancreatitis, biliary | 2021-08-02 || dyskensia , IBS, enteritis | || enteritis most likely - which is self resolving | || Will start on PPI 40mg daily for now | || Can have zofran PRN | || will test for COVID | || ER precautions given | |+ + +| Differential anemia, dehydration, anxiety, hypoglycemia, decreased BP, inner | 2021-08-02 || ear infection, heart diseases, vertigo , or viral infection | || Pt to be tested for COVID first | || If negative and s/s continues RTO and will do further work up | || continue taking BP meds- pT notes her BP cuff isnt working today | || ER precautions given | || Will start work up | || Will get EKG | || labs CBC. CMP, orthostatic BP | |+ + +| continue to quarantine. ER precautions for resp distress | 2021-09-01 || follow up 1 week | || wash hands frequently, avoid crowds. | || follow up with PCP as needed | |+ + +| azithromycin, prednisone, bromfed DM | 2021-09-04 || prescription and side effects verbally given. | || chamomile tea prn, listerine, warm salt water gargles prn. | || RTO if symptoms do not improve in 3-5 days | || ER precautions for resp. distress. | |+ + +| Weight loss recommended | 2022-06-17 || Portion control | || Exercise 150 minutes a week | |+ + +| Recommend daily exercise for 30-40 minutes a day as part of a healthy lifestyle | 2021-09-24 || like isometric exercises, weights, cycling, fast paced walking | |+ + +| Recommend healthy eating with foods from a variety of food groups. Encourage to | 2021-09-24 || eat more vegetables like kale, spinach, colorful vegetables and appropriate | || portion sizes, and few sugary snacks/drinks/sodas. | || Avoid high fructose corn syrup, drink at least 64 ounces of water a day. | |+ + +| BP well controlled Continue current medications: | 2021-09-24 || No medication refill needed at this time. | || Recommend monitor blood pressure daily and log results and bring results to | || next office visit. | || DASH diet - The DASH diet is rich in fruits, vegetables, whole grains, and | || low-fat dairy foods; includes meat, fish, poultry, nuts, and beans; and is | || limited in sugar-sweetened foods and beverages, red meat, and added fats. | || Avoid foods with high salt content such as processed foods, lunch meats, and | || canned food. | || Exercise for 30 minutes five times a week. | || Notify clinic if BP > 160/95 or < 100/60 | || Discussed purpose and side effects of prescribed medications. | || | || RTO fasting CMP, A1c, lipid panel | || RTO in 3 months or earlier if need. | |+ + +| refer to cardiology | 2021-09-24 |+ + +| Patient to continue current medication and will adjust medication if indicated | 2021-09-24 || pending labs | || | || LIPID PANEL WNL - Continue with rosuvastatin 10mg | || recommend high fiber diet, like kale, spinach, spring mix. limit breads, | || pastas, rice, potatoes. recommend exercise 20-30 minutes daily | |+ + +| ciprofloxacin HCl 500mg 1 tablet by mouth BID for 7 days | 2021-12-23 |+ + +| 06-17-22 Flu vaccine | 2022-06-17 |+ + +| RTO A1c | 2022-06-17 || 01/13/23 A1c 6.1% | || 10/01/21 A1c 6% | |+ + +| RTO CMP | 2023-05-16 || 01/13/23 ALT 70 AST 59 | |+ + +[id number] of [facility] [place]|[id number] for patient [id number] Section NarrativeNARRATIVEFormatted C-CDA narrative textSFAStfaustina Caraballo [facility]2024-06-03T00:00:00 Rolan BenderPadilla [facility] 2023-10-10 00:00:00 [id number] T00:00:00+ + +| Plan Activity | Plan Date |+ + +| Auto-Add by COVID19 Screen Import. Testing based on symptoms of fatigue,body | 2021-08-02 || aches and sore throat. Can take Nsiads for body aches. | || RTO entered for COVID testing | || Continue practicing social distancing, self quarantine, and monitor symptoms | || Results returning 7-10 days secondary to high volume of [place] Testing Priority | || results as designated by CDC returning up to 3 days | || Check Patient Portal for negative results 7-10 days or await SMS messaging | || Positive Results will be called to patient to begin isolation, receive ER | || precautions and follow up Telehealth appointments. Positive results will be | || notified to the [facility] to determine contact tracing | || Continue self quarantine as indicated until results return, social distancing, | || hand hygiene and enforced mask wearing Proceed to your nearest emergency room | || for shortness of breath and decompensation | || Please use [employer]-19 telephone number for any questions, Return to | || clinic as recommended or negative testing with remaining symptoms | || RTO if needed | |+ + +| differential include, gastritis, gastric ulcer, h pylori, pancreatitis, biliary | 2021-08-02 || dyskensia , IBS, enteritis | || enteritis most likely - which is self resolving | || Will start on PPI 40mg daily for now | || Can have zofran PRN | || will test for COVID | || ER precautions given | |+ + +| Differential anemia, dehydration, anxiety, hypoglycemia, decreased BP, inner | 2021-08-02 || ear infection, heart diseases, vertigo , or viral infection | || Pt to be tested for COVID first | || If negative and s/s continues RTO and will do further work up | || continue taking BP meds- pT notes her BP cuff isnt working today | || ER precautions given | || Will start work up | || Will get EKG | || labs CBC. CMP, orthostatic BP | |+ + +| continue to quarantine. ER precautions for resp distress | 2021-09-01 || follow up 1 week | || wash hands frequently, avoid crowds. | || follow up with PCP as needed | |+ + +| azithromycin, prednisone, bromfed DM | 2021-09-04 || prescription and side effects verbally given. | || chamomile tea prn, listerine, warm salt water gargles prn. | || RTO if symptoms do not improve in 3-5 days | || ER precautions for resp. distress. | |+ + +| Weight loss recommended | 2022-06-17 || Portion control | || Exercise 150 minutes a week | |+ + +| Recommend daily exercise for 30-40 minutes a day as part of a healthy lifestyle | 2021-09-24 || like isometric exercises, weights, cycling, fast paced walking | |+ + +| Recommend healthy eating with foods from a variety of food groups. Encourage to | 2021-09-24 || eat more vegetables like kale, spinach, colorful vegetables and appropriate | || portion sizes, and few sugary snacks/drinks/sodas. | || Avoid high fructose corn syrup, drink at least 64 ounces of water a day. | |+ + +| BP well controlled Continue current medications: | 2021-09-24 || | || has medication refills at this time. | || Recommend monitor blood pressure daily and log results and bring results to | || next office visit. | || DASH diet - The DASH diet is rich in fruits, vegetables, whole grains, and | || low-fat dairy foods; includes meat, fish, poultry, nuts, and beans; and is | || limited in sugar-sweetened foods and beverages, red meat, and added fats. | || Avoid foods with high salt content such as processed foods, lunch meats, and | || canned food. | || Exercise for 30 minutes five times a week. | || Notify clinic if BP > 160/95 or < 100/60 | || Discussed purpose and side effects of prescribed medications. | || | || RTO fasting CMP, A1c, lipid panel | || RTO in 3 months or earlier if need. | |+ + +| refer to cardiology | 2021-09-24 |+ + +| 2023-05-19 LIPID PANEL WNL - Continue with rosuvastatin 10mg | 2021-09-24 || recommend high fiber diet, like kale, spinach, spring mix. limit breads, | || pastas, rice, potatoes. recommend exercise 20-30 minutes daily | |+ + +| ciprofloxacin HCl 500mg 1 tablet by mouth BID for 7 days | 2021-12-23 |+ + +| 06-17-22 Flu vaccine | 2022-06-17 |+ + +| RTO A1c | 2022-06-17 || 01/13/23 A1c 6.1% | || 10/01/21 A1c 6% | |+ + +| RTO CMP | 2023-05-16 || 01/13/23 ALT 70 AST 59 | |+ + +[id number] of TreatmentLNCARE PLANTXTSFA|[id number] for patient [id number] Section NarrativeNARRATIVEFormatted C-CDA narrative textSFAStfaustina [facility] [place]2024-05-06T00:00:00 [facility]"
[2024-01-15] MEDS ORDERED: ACETAMINOPHEN 500 MG TAB ONE (10:23)
--- NOTE | 2024-01-15 10:52 | RAD REPORT ---
EXAM DESCRIPTION: CT - CTHCSPWOC - 01/15/2024 10:36 am CLINICAL HISTORY: Trauma, head and neck injury. head injury;Headache COMPARISON: No comparisons TECHNIQUE: Axial 5 mm thick images of the head were obtained. Axial 2 mm thick images of the cervical spine were obtained with sagittal and coronal reconstruction images generated and reviewed. All CT scans are performed using dose optimization technique as appropriate and may include automated exposure control or mA/KV adjustment according to patient size. FINDINGS: CT HEAD WITHOUT CONTRAST: No acute hemorrhage, hydrocephalus or extra-axial collection is identified.No areas of brain edema or midline shift. The paranasal sinuses and mastoids are clear.The calvarium is intact. CT CERVICAL SPINE WITHOUT CONTRAST: No fracture or subluxation.Prominent posterior osteophyte at C4-5.No prevertebral soft tissues swelli ng is identified. IMPRESSION: No acute intracranial or cervical spine findings.
[2024-01-15] MEDS ORDERED: TDAP (DIPHTH,PERTUSS(ACELL),TET VAC) 0.5 ML VIAL IMVAC ONE (11:06)
[2024-01-15] MEDS ORDERED: LIDOCAINE 2% W/EPI 1:200,000 MPF 20 ML VIAL IM ONE (11:34)
[2024-01-15] MEDS ORDERED: MORPHINE 4 MG/ML SYR ONE (11:58)
--- NOTE | 2024-01-15 12:22 | ER ---
Nurse's Notes [facility] Name: Izzy Mckee Age: 53 yrs Sex: Female : 1970 Arrival Date: 01/15/2024 Time: 10:02 Bed 12 Private MD: Diagnosis: Laceration without foreign body of scalp Presentation: 01/14 10:16 Chief complaint: Patient states: PEG FELL AT WORK, 2CM LAC TO CROWN OF HEAD, NO LOC. bp Coronavirus screen: At this time, the client does not indicate any symptoms associated with coronavirus-19. Ebola Screen: No symptoms or risks identified at this time. Complicating Factors: There are no complicating factors for this patient. Initial Sepsis Screen: Does the patient meet any 2 criteria? No. Patient's initial sepsis screen is negative. Does the patient have a suspected source of infection? No. Patient's initial sepsis screen is negative. Risk Assessment: Do you want to hurt yourself or someone else? Patient reports no desire to harm self or others. Onset of symptoms was January 15, 2024 at 09:30. 10:16 Method Of Arrival: Ambulatory bp 10:16 Acuity: RAMIRO 3 bp Triage Assessment: 10:17 General: Appears in no apparent distress. uncomfortable, Behavior is cooperative, bp appropriate for age, anxious. Pain: Complains of pain in head. Injury Description: Laceration sustained to left frontal area. CHRI[employer]IAN [employer]ER: 11:12 LMP N/A - control method, Not ll1 Historical: - Allergies: 10:17 No Known Allergies; bp - Home Meds: 10:17 Lisinopril Oral [Active]; atorvastatin oral [Active]; bp - PMHx: 10:17 Hypertensive disorder; Hypercholesterolemia; bp - Immunization history:: Adult Immunizations up to date, Last tetanus immunization: unknown. - Infectious Disease History:: Denies. - Social history:: Smoking status: Patient denies any tobacco usage or history of. Screenin:11 [facility] ED Fall Risk Assessment (Adult) History of falling in the last 3 months, ll1 including since admission No falls in past 3 months (0 pts) Confusion or Disorientation No (0 pts) Intoxicated or Sedated No (0 pts) Impaired Gait No (0 pts) Mobility Assist Device Used No (0 pt) Altered Elimination No (0 pt) Score/Fall Risk Level 0 - 2 = Low Risk Maintained a safe environment, Hourly rounding (assess needs \T\ fall precautionary measures) done. Abuse screen: Denies threats or abuse. Nutritional screening: No deficits noted. Tuberculosis screening: No symptoms or risk factors identified. Assessment: 11:10 Reassessment: No changes from previously documented assessment. Patient and/or family ll1 updated on plan of care and expected duration. Pain level reassessed. General: Appears uncomfortable, Behavior is calm, cooperative, appropriate for age. Pain: Complains of pain in scalp Quality of pain is described as aching. Derm: Reports laceration to top of head. Got hit with a Peg at work. Musculoskeletal: Reports pain in scalp. 12:33 Injury Description: Laceration is clean. cm10 Vital Signs: 10:16 BP 141 / 83; Pulse 75; Resp 16; Temp 98; Pulse Ox 95% ; bp 12:32 BP 123 / 71; Pulse 63; Resp 16; Pulse Ox 97% on R/A; cm10 [place] Coma Score: 10:30 Eye Response: spontaneous(4). Motor Response: obeys commands(6). Verbal Response: cp oriented(5). Total: 15. ED Course: 10:06 Patient arrived in ED. mr 10:08 Baron Rodriguez PA is PHCP. cp 10:08 Baldomero Martin MD is Attending Physician. cp 10:17 Triage completed. bp 10:17 Arm band placed on. bp 10:36 CT Head C Spine In Process Unspecified. EDMS 11:01 Patient placed in an exam room, on a stretcher. ll1 11:05 Justo Blackman RN is Primary Nurse. ll1 11:12 Patient has correct armband on for positive identification. Bed in low position. ll1 Cardiac monitoring not applicable on this patient. 12:32 Provided Education on: Follow-up instructions. cm10 12:32 No provider procedures requiring assistance completed. Patient did not have IV access cm10 during this emergency room visit. Administered Medications: 10:31 Drug: Acetaminophen PO 1000 mg PO once Route: PO; bp 11:10 Follow up: Response: No adverse reaction ll1 11:10 Drug: Boostrix Tdap IM 0.5 ml IM once; as a single dose Route: IM; Site: left deltoid; ll1 12:31 Follow up: Response: (VIS) Vaccine information sheet provided today. Questions and/or cm10 concerns addressed. VIS edition date: Mar 12, 2021.; No adverse reaction 12:08 Drug: morphine IM 4 mg IM once Route: IM; Site: right gluteus; cm10 12:31 Follow up: Response: No adverse reaction; Pain is decreased cm10 12:31 Drug: Lidocaine Infiltration (2 %) 5 ml 5 ml Infiltration once; to bedside with epi cm10 {Note: given by provider.} Volume: 5 ml; Route: Infiltration; Medication: 11:12 Vaccine Information Statement (VIS) provided today. Questions and/or concerns ll1 addressed. VIS edition date: March 12, 2021. Outcome: 12:21 Discharge ordered by . cp 12:32 Discharged to home via wheelchair, with significant other, cm10 12:32 Condition: good 12:32 Discharge instructions given to patient, Instructed on discharge instructions, follow up and referral plans. wound care, Demonstrated understanding of instructions, follow-up care, wound care, 12:33 Patient left the ED. cm10 Signatures: Dispatcher [employer] EDMS Ni Gillespie, Reg Reg mr Baron Rodriguez, Marco Stanley cp, RN RN bp Justo Blackman RN RN ll1 Kmimy Lutz RN RN cm10
--- NOTE | 2024-01-15 12:22 | EDPHYS ---
Physician Documentation [facility] Name: Izzy Mckee Age: 53 yrs Sex: Female : 1970 Arrival Date: 01/15/2024 Time: 10:02 Bed 12 Private MD: ED Physician Baldomero Martin HPI: 01/14 10:30 This 53 yrs old Female presents to ER via Ambulatory with complaints of cp Laceration To Head. 10:30 The patient or guardian reports injury, a laceration, pain. cp 10:30 The complaints affect the left frontal area. cp 10:30 Context of injury: The problem was sustained at work, resulted from heavy object cp falling and striking head. Onset: The symptoms/episode began/occurred just prior to arrival. Associated signs and symptoms: Pertinent positives: headache, Pertinent negatives: the patient has not experienced a loss of conciousness, incontinence, vomiting. SYSTEMS TESTER: 11:12 LMP N/A - control method, Not ll1 Historical: - Allergies: 10:17 No Known Allergies; bp - Home Meds: 10:17 Lisinopril Oral [Active]; atorvastatin oral [Active]; bp - PMHx: 10:17 Hypertensive disorder; Hypercholesterolemia; bp - Immunization history:: Adult Immunizations up to date, Last tetanus immunization: unknown. - Infectious Disease History:: Denies. - Social history:: Smoking status: Patient denies any tobacco usage or history of. ROS: 10:35 Constitutional: Negative for body aches, chills, fever, poor PO intake, cp 10:35 Eyes: Negative for injury, pain, redness, and discharge, cp 10:35 Cardiovascular: Negative for chest pain, palpitations, 10:35 Abdomen/GI: Negative for abdominal pain, nausea and vomiting, 10:35 Back: Negative for pain at rest, pain with movement, 10:35 Neuro: Positive for headache, Negative for altered mental status, loss of consciousness, syncope, near syncope, weakness, 10:35 All other systems are negative, Exam: 10:40 Constitutional: The patient appears in no acute distress, alert, awake, non-toxic, well cp developed, well nourished, uncomfortable, 10:40 Head/face: Noted is a laceration(s), that is deep, of the left frontal area, swelling, cp that is mild, 10:40 Eyes: Periorbital structures: appear normal, Pupils: equal, round, and reactive to light and accomodation, Extraocular movements: intact throughout, Conjunctiva: normal, no exudate, no injection, Sclera: no appreciated abnormality, Lids and lashes: appear normal, bilaterally, 10:40 ENT: External ear(s): are unremarkable, Ear canal(s): are normal, clear, TM's: dullness, bilaterally, Nose: is normal, Mouth: Lips: moist, Oral mucosa: pink and intact, moist, Posterior pharynx: Airway: no evidence of obstruction, patent, 10:40 Neck: C-spine: C-collar placed in ED, vertebral tenderness, that is mild, appreciated at C4 and C5, crepitus, is not appreciated, ROM/movement: pain, that is mild, with extension, limited range of motion, is not appreciated, 10:40 Chest/axilla: Inspection: normal, 10:40 Cardiovascular: Rate: normal, Rhythm: regular, Edema: is not appreciated, JVD: is not appreciated, 10:40 Respiratory: the patient does not display signs of respiratory distress, Respirations: normal, no use of accessory muscles, no retractions, labored breathing, is not present, Breath sounds: are clear throughout, no decreased breath sounds, no stridor, no wheezing, 10:40 Abdomen/GI: Inspection: abdomen appears normal, Palpation: abdomen is soft and non-tender, in all quadrants, 10:40 Back: pain, is absent, ROM is normal, vertebral tenderness, is not appreciated, 10:40 Neuro: Orientation: to person, place \T\ time. Mentation: is normal, Cerebellar function: is grossly normal, Motor: moves all fours, strength is normal, Sensation: no obvious gross deficits, Vital Signs: 10:16 BP 141 / 83; Pulse 75; Resp 16; Temp 98; Pulse Ox 95% ; bp 12:32 BP 123 / 71; Pulse 63; Resp 16; Pulse Ox 97% on R/A; cm10 Katy Coma Score: 10:30 Eye Response: spontaneous(4). Motor Response: obeys commands(6). Verbal Response: cp oriented(5). Total: 15. Laceration: 11:53 Wound Repair of 2.5cm ( 1.0in ) subcutaneous laceration to scalp. Irregularly shaped.. cp Distal neuro/vascular/tendon intact. Anesthesia: Wound infiltrated with 5 mls of 2% lidocaine. Wound prep: Simple cleansing by me. Skin closed with 3 1-0 Mago using staple gun. Patient tolerated well. MDM: 10:13 Patient medically screened. cp 11:00 Differential diagnosis: Contusion of Hematoma on Laceration of Intracranial bleed- Concussion cerebral contusion, superficial laceration. 12:20 Data reviewed: vital signs, nurses notes, radiologic studies, CT scan. 12:20 I considered the following discharge prescriptions or medication management in the emergency department Medications were administered in the Emergency Department. See MAR. Counseling: I had a detailed discussion with the patient and/or guardian regarding the historical points, exam findings, and any diagnostic results supporting the discharge/admit diagnosis, radiology results, the need for outpatient follow up, a family practitioner, to return to the emergency department if symptoms worsen or persist or if there are any questions or concerns that arise at home. Response to treatment: the patient's symptoms have markedly improved after treatment, and as a result, I will discharge patient. Special discussion: Based on the patient's history, exam and DX evaluation, there is no indication for emergent intervention or inpatient TX. It is understood by the patient/guardian that if the SXs persist or worsen they need to return immediately for re-evaluation. 01/14 10:21 Order name: CT Head C Spine; Complete Time: 11:02 01/14 11:03 Interpretation: Reviewed report. Administered Medications: 10:31 Drug: Acetaminophen PO 1000 mg PO once Route: PO; bp 11:10 Follow up: Response: No adverse reaction ll1 11:10 Drug: Boostrix Tdap IM 0.5 ml IM once; as a single dose Route: IM; Site: left deltoid; ll1 12:31 Follow up: Response: (VIS) Vaccine information sheet provided today. Questions and/or cm10 concerns addressed. VIS edition date: Mar 12, 2021.; No adverse reaction 12:08 Drug: morphine IM 4 mg IM once Route: IM; Site: right gluteus; cm10 12:31 Follow up: Response: No adverse reaction; Pain is decreased cm10 12:31 Drug: Lidocaine Infiltration (2 %) 5 ml 5 ml Infiltration once; to bedside with epi cm10 {Note: given by provider.} Volume: 5 ml; Route: Infiltration; Disposition Summary: 01/15/24 12:21 Discharge Ordered Notes: Location: Home cp Problem: new cp Symptoms: have improved cp Condition: Stable cp Diagnosis - Laceration without foreign body of scalp cp Followup: cp - With: Private Physician - When: 1 week - Reason: Staple/Suture removal Discharge Instructions: - Discharge Summary Sheet cp - Head Injury, Adult cp - Laceration Care, Adult cp - Sutures, Mago, or Adhesive Wound Closure cp Forms: - Medication Reconciliation Form cp - Antibiotic Education cp - Prescription Opioid Use cp - Patient Portal Instructions cp - Leadership Thank You Letter cp Signatures: Dispatcher [employer] EDMS Baron Rodriguez PA PA cp Marco Pemberton RN RN bp Justo Blackman RN RN ll1 Kimmy Lutz RN RN cm10 Corrections: (The following items were deleted from the chart) 10:22 10:22 Head C Spine MPR Wo Con+[id number].[id number] ordered. EDMS EDMS 22: 22:07 Context of injury: The problem was sustained at work, resulted from heavy object cp falling and striking head, cp 22: 22:07 Onset: The symptoms/episode began/occurred just prior to arrival, cp cp 22: 22:07 Associated signs and symptoms: Pertinent positives: headache, Pertinent cp negatives: the patient has not experienced a loss of conciousness, incontinence, vomiting, cp 22: 22:07 GCS: 15, cp cp
[2024-01-15 13:00] VITALS: BP 123/71; TEMP 98; O2SAT 97
== END 2024-01-15 12:33 | disposition home or self-care (01) ==
LOC: ER 10:02
PROC: 0HQ0XZZ Repair Scalp Skin, External Approach (ICD-10-PCS; principal; 2024-01-15)
DX: S01.01XA Laceration without foreign body of scalp, initial encounter (principal)
CPT/HCPCS: 12001; 70450; 72125; 96372; 99284